=== PATIENT | male | born 1975 | race Caucasian/White ===

== ENCOUNTER 2022-01-05 01:33 | Inpatient (IN) | payer BC ==
[~2022-01-05] VITALS: Ht 167.6 cm; Wt 98.6 kg
[2022-01-05] MEDS ORDERED: ZYLOPRIM 100 M100 MG PO (03:49)
[2022-01-05] MEDS ORDERED: LIPITOR20 MG PO (03:51)
[2022-01-05] MEDS ORDERED: PLAVIX75 MG PO (03:51)
[2022-01-05] MEDS ORDERED: ASPIRIN EC81 MG PO (03:51)
[2022-01-05] MEDS ORDERED: COLCHICINE0.6 MG PO (03:53)
[2022-01-05] MEDS ORDERED: ZESTRIL5 MG PO (03:53)
[2022-01-05] MEDS ORDERED: MOBIC7.5 MG PO (03:54)
[2022-01-05] MEDS ORDERED: GLUCOPHAGE 500500 MG PO (03:55)
[2022-01-05] MEDS ORDERED: LOPRESSOR50 MG PO (03:55)
[2022-01-05] MEDS ORDERED: FISH OIL 1,0001 EACH PO (03:56)
[2022-01-05] MEDS ORDERED: PROTONIX40 MG PO (03:56)
--- NOTE | 2022-01-05 03:58 | NUR ---
PT ARRIVED VIA EMS. 46YO MALE PATIENT ADMITTED FROM [facility] TO [facility] ICU WITH CHIEF COMPLAINT OF N,V,D FOR A COUPLE OF DAYS AND YESTERDAY HIS CHEST STARTED HURTING AND NUMBNESS AND TINGLING IN THIS ARMS AND HANDS. PT STATES THAT HE WAS AFRAID HE MIGHT BE HAVING ANOTHER HEART ATTACK AND WENT TO ER FOR TREATMENT. PT IS A&O X 3, PUPILS ROUND AND REACTIVE TO LIGHT, SKIN WARM AND DRY WITH NO SKIN BREAKDOWN, REDNESS, OR BRUSIING NTD UPON ADMISSION. PT LUNGS ARE CTA WITH O2 SAT 96 % ON RA, PT DENIES COUGH OR SOA AT THIS TIME. ABD IS SOFT AND NON-DISTENDED WITH COMPLAINTS OF CONTINUES NAUSEA & DIARRHEA AT THIS TIME. PANEL WIRER APPLIED ORDERED WITH PT RHYTHM SINUS TACHYCARDIA AND HYPERTENSION NTD WITH MD AT BEDSIDE AND AWARE OF THIS AN ONGOING ISSUE WITH MEDICATIONS TAKEN PRESCRIBED PRIOR TO ADMISSION. PT EDUCATION PROVIDED RE POLICY AND PROCEDURES WELL UNIT ORIENTATION. PT DENIES ANY CHEST PAIN OR SOA AT THIS TIME. NAD DISTRESS NTD. MD AT BEDSIDE TO COMPLETE A FULL FOCUSED ASSESSMENT.
[2022-01-05] MEDS ORDERED: METFORMIN ER G500 MG PO (03:59)
[2022-01-05 04:48] LABS: HEMOGLOBIN 15.7 gm/dl (14.0-17.5); RED BLOOD COUNT 4.86 M/UL (4.20-5.50); WHITE BLOOD COUNT 7.4 K/UL (4.5-11.0)
[2022-01-05 05:10] LABS: BUN/CREATININE RATIO 18 (0-10)
[2022-01-05 05:27] LABS: ADENOVIRUS F 40/41 Not Detected (Negative); ASTROVIRUS Not Detected (Negative); CAMPYLOBACTER Not Detected (Negative); CRYPTOSPORIDIUM Not Detected (Negative); E.COLI 0157 Not Detected (Negative); ENTAMOEBA HISTOLYTICA Not Detected (Negative); ENTEROAGGREGATIVE E.COLI (EAEC Not Detected (Negative); ENTEROPATHOGENIC E.COLI (EPEC) Not Detected (Negative); ENTEROTOXIGENIC E.COLI (ETEC) Not Detected (Negative); GIARDIA LAMBLIA Not Detected (Negative); PLESIOMONAS SHIGELLOIDES Not Detected (Negative); ROTOVIRUS A Not Detected (Negative); SALMONELLA Not Detected (Negative); SAPOVIRUS Not Detected (Negative); SHIG/ENTEROINVAS.ECOLI (EIEC) Not Detected (Negative); SHIGA-LIK TOX.PRO.E.COLI (STEC Not Detected (Negative); VIBRIO Not Detected (Negative); VIBRIO CHOLERAE Not Detected (Negative); YERSINIA ENTEROCOLITICA Not Detected (Negative)
[2022-01-05 08:13] LABS: NOROVIRUS GI/GII DETECTED (Negative)
== END 2022-01-05 17:49 | disposition home or self-care (01) | DRG 392 ==
LOC: PROG CARE 01:33 → CCU 01:38
PROVIDERS: ADMIT Internal Medicine
DX: A08.11 Acute gastroenteropathy due to Norwalk agent (principal); Z68.45 Body mass index [BMI] 70 or greater, adult; I25.10 Atherosclerotic heart disease of native coronary artery without angina pectoris; E11.9 Type 2 diabetes mellitus without complications; M10.9 Gout, unspecified; E78.5 Hyperlipidemia, unspecified; I10 Essential (primary) hypertension; E66.9 Obesity, unspecified; K76.0 Fatty (change of) liver, not elsewhere classified; R10.13 Epigastric pain; E86.0 Dehydration; Z87.442 Personal history of urinary calculi; Z95.1 Presence of aortocoronary bypass graft; Z90.49 Acquired absence of other specified parts of digestive tract; Z83.3 Family history of diabetes mellitus; Z79.899 Other long term (current) drug therapy; Z79.82 Long term (current) use of aspirin; Z79.84 Long term (current) use of oral hypoglycemic drugs
CPT/HCPCS: 36415; 80053; 80307; 82550; 82553; 82962; 83036; 83735; 84100; 84132; 84484; 84550; 85027; 86140; 87040; 87177; 87209; 87507; J2543; J7030